=== PATIENT | female | born 2000 | race Caucasian/White ===

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

== ENCOUNTER 2022-01-19 17:20 | Emergency (ER) | payer BC ==
[2022-01-19 19:02] LABS: HEMOGLOBIN 13.1 gm/dl (12.3-15.3); RED BLOOD COUNT 4.24 M/UL (4.00-5.10); WHITE BLOOD COUNT 7.1 K/UL (4.5-11.0)
[2022-01-19 19:26] LABS: BUN/CREATININE RATIO 12 (0-10)
[2022-01-19] MEDS ORDERED: ZOFRAN 4 MG TAB4 MG PO (21:00)
== END 2022-01-19 21:05 | disposition home or self-care (01) ==
LOC: ER1 17:20
PROVIDERS: Physician Assistant Medical
DX: R10.9 Unspecified abdominal pain (principal); R11.2 Nausea with vomiting, unspecified; R19.7 Diarrhea, unspecified
CPT/HCPCS: 80053; 81001; 84703; 85025; 96374; 99284; J2405